=== PATIENT | female | born 1945 | race Caucasian/White ===

== ENCOUNTER 2018-05-26 08:58 | Outpatient (CLI) | payer MEDICARE | END 2018-05-26 08:59 | disposition home or self-care (01) | LOC: BICMAMMO 08:58 | PROVIDERS: ATTEND Specialist | DX: Z12.31 Encounter for screening mammogram for malignant neoplasm of breast (principal); R92.1 Mammographic calcification found on diagnostic imaging of breast | CPT/HCPCS: 77063; 77067 ==

== ENCOUNTER 2019-05-27 08:01 | Outpatient (CLI) | payer MEDICARE ==
--- NOTE | 2019-05-27 08:55 | MMO ---
Bilateral MAMMO Bilat Screen [facility]. CLINICAL HISTORY: Patient is 74 years old and is seen for screening. The patient has no family history of breast cancer. The patient has a history of Skin cancer at age 63. VIEWS: The views performed were: bilateral craniocaudal with tomosynthesis and bilateral mediolateral oblique with tomosynthesis. FILMS COMPARED: The present examination has been compared to prior imaging studies performed at [facility] on 05/20/2015, 05/21/2016, 05/23/2017 and 05/26/2018. MAMMOGRAM FINDINGS: There are scattered fibroglandular densities. There is a new oval mass measuring 9 millimeters with obscured margins seen in the posterior upper-outer region of the left breast. In the right breast, there are no suspicious masses, calcifications or areas of architectural distortion. IMPRESSION: NEW MASS IN THE LEFT BREAST REQUIRES ADDITIONAL EVALUATION. SPOT COMPRESSION IS RECOMMENDED. AN ULTRASOUND EXAM IS RECOMMENDED IF NEEDED. THE RESULTS OF THIS EXAM WERE SENT TO THE PATIENT. ACR BI-RADS Category 0 - Incomplete: Need additional imaging evaluation. [facility] will notify the patient of the need for additional imaging services. MAMMOGRAPHY NOTE: 1. A negative mammogram report should not delay a biopsy if a dominant of clinically suspicious mass is present. 2. Approximately 10% to 15% of breast cancers are not detected by mammography. 3. Adenosis and dense breasts may obscure an underlying neoplasm. Reported by: CHATO POWELL MD Electonically Signed: [id number]
== END 2019-05-27 08:02 | disposition home or self-care (01) ==
LOC: BICMAMMO 08:01
PROVIDERS: ATTEND Specialist
DX: Z12.31 Encounter for screening mammogram for malignant neoplasm of breast (principal); N63.20 Unspecified lump in the left breast, unspecified quadrant; Z85.828 Personal history of other malignant neoplasm of skin
CPT/HCPCS: 77063; 77067

== ENCOUNTER 2019-05-29 08:43 | Outpatient (CLI) | payer MEDICARE ==
--- NOTE | 2019-05-29 12:07 | ULT ---
LEFT BREAST DIAGNOSTIC ULTRASOUND: INDICATION: Followup left breast masses. FINDINGS: Within the left breast 12 o'clock position 2 cm from the nipple, there is a 0.8 x 0.5 cm cyst. An ad ditional simple-appearing cyst is seen in the left breast 1 o'clock position 4 cm from the nipple kait suring 3 x 2.7 mm. IMPRESSION: BIRADS category 2 - benign. POS: OFF
--- NOTE | 2019-06-02 06:46 | MMO ---
Left Breast MAMMO Unilat Diag [facility]. CLINICAL HISTORY: Patient is 74 years old and is seen for additional evaluation requested from prior study. The patient has no family history of breast cancer. The patient has a history of Skin cancer at age 63. VIEWS: The views performed were: left craniocaudal spot compression with tomosynthesis; left mediolateral oblique spot compression with tomosynthesis; and left mediolateral with tomosynthesis. FILMS COMPARED: The present examination has been compared to prior imaging studies performed at [facility] on 05/23/2017, 05/26/2018, 05/27/2019 and 05/29/2019. MAMMOGRAM FINDINGS: There are scattered fibroglandular densities. Finding 1: There is an equal density, oval mass measuring 9 millimeters seen in the middle region of the left breast at 12 o'clock. The mass was shown to be a cyst on ultrasound. Finding 2: There is an oval mass measuring 3 millimeters seen in the middle region of the left breast at 1 o'clock. The mass was shown to be a cyst on ultrasound. There are no suspicious masses, suspicious calcifications, or new areas of architectural distortion. IMPRESSION: FINDING 1: MASS IN THE MIDDLE REGION OF THE LEFT BREAST AT 12 O'CLOCK IS BENIGN. FINDING 2: MASS IN THE MIDDLE REGION OF THE LEFT BREAST AT 1 O'CLOCK IS BENIGN. THE FINDINGS AND RECOMMENDATIONS WERE DISCUSSED WITH THE PATIENT PRIOR TO HER LEAVING THE CENTER. A ROUTINE FOLLOW-UP MAMMOGRAM IN 1 YEAR IS RECOMMENDED. THE RESULTS OF THIS EXAM WERE SENT TO THE PATIENT. ACR BI-RADS Category 2 - Benign finding MAMMOGRAPHY NOTE: 1. A negative mammogram report should not delay a biopsy if a dominant of clinically suspicious mass is present. 2. Approximately 10% to 15% of breast cancers are not detected by mammography. 3. Adenosis and dense breasts may obscure an underlying neoplasm. Reported by: RICHIE FLOOD MD Electonically Signed: [id number]
== END 2019-05-29 08:44 | disposition home or self-care (01) ==
LOC: BICMAMMO 08:43
PROVIDERS: ATTEND Specialist
DX: N63.20 Unspecified lump in the left breast, unspecified quadrant (principal)
CPT/HCPCS: 76642; 77065; G0279

== ENCOUNTER 2020-03-17 09:06 | Outpatient (CLI) | payer MEDICARE ==
--- NOTE | 2020-03-17 11:26 | RAD ---
THORACIC SPINE 3 VIEWS: Date: 03/17/2020 INDICATION: Back pain and scoliosis. FINDINGS: Thoracic vertebra maintain height and alignment. Mild to moderate degenerative spurring is seen. No c ompression deformity. No lytic or blastic process. IMPRESSION: Mild to moderate degenerative changes of the thoracic spine. POS: AGW
--- NOTE | 2020-03-17 11:27 | RAD ---
LUMBAR SPINE 2 VIEWS: AP and lateral views obtained weightbearing. INDICATION: Back pain. Scoliosis. FINDINGS: In the AP projection, there is scoliotic curvature to the right with apex at L3-4 measured at approxi mately 15 degrees. On the lateral view, there is a grade I anterolisthesis at L5-S1. There may be p osterior spondylolysis, although this is not confirmed. There is loss of disk space at L4-5. Moderate degenerative spurring. Facet hypertrophy. IMPRESSION: Moderate degenerative change with mild scoliotic curvature as described above. Grade I anterolisthes is at L5-S1. POS: AGW
== END 2020-03-17 09:07 | disposition home or self-care (01) ==
LOC: BICRAD 09:06
PROVIDERS: ATTEND Specialist
DX: M41.9 Scoliosis, unspecified (principal); M54.5 Low back pain; M47.816 Spondylosis without myelopathy or radiculopathy, lumbar region; M43.17 Spondylolisthesis, lumbosacral region; M47.814 Spondylosis without myelopathy or radiculopathy, thoracic region
CPT/HCPCS: 72072; 72100

== ENCOUNTER 2020-07-20 17:03 | Inpatient (IN) | payer MEDICARE, OTHER ==
[2020-07-20 18:21] LABS: #Eosinphils 0.1 thou/uL (0.0-0.7); #Lymphocytes 1.2 thou/uL (1.20-3.40); #Monocytes 0.5 thou/uL (0.11-0.59); #Neutrophils 2.7 thou/uL (1.40-6.50); %Basophils 0.4 % (0.0-1.0); %Eosinophils 1.3 % (0.0-10.0); %Lymphocytes 27.6 % (21.0-51.0); %Monocytes 11.1 % (0.0-10.0); %Neutrophils 59.6 % (42.0-75.0); Hemoglobin 14.9 g/dL (12.0-16.0); Mean Corpuscular HGB CONC 33.2 g/dL (32.0-36.0); Mean Corpuscular Hemoglobin 32.6 pg (27.0-31.0); Mean Corpuscular Volume 98.1 fL (78.0-98.0); Mean Platelet Volume 7.7 fL (7.4-10.4); Platelet Count 251 thou/uL (130-400); RBC Distribution Width 11.1 % (11.5-14.5); Red Blood Cell (RBC) Count 4.58 mill/uL (4.20-5.40); White Blood Cell (WBC) Count 4.5 thou/uL (4.8-10.8)
[2020-07-20] MEDS ORDERED: Ondansetron PF 4 MG/2 ML Vial ONE (18:23)
[2020-07-20] MEDS ORDERED: Aspirin 325 MG TAB ONE (18:23)
--- NOTE | 2020-07-20 18:30 | RAD ---
CHEST ONE VIEW: 07/20/20 HISTORY: Chest pain, nausea. COMPARISON: 07/05/09. FINDINGS: Heart size is normal. Lungs are clear. No confluent pneumonia, overt edema, or pleural effusion. Evid ence for old granulomatous disease. Postoperative changes of both humeral heads. IMPRESSION: No significant acute intrathoracic disease. Old granulomatous disease. POS: RRE
[2020-07-20 18:40] LABS: ALT (SGPT) 21 U/L (8-55); AST (SGOT) 21 U/L (5-34); Albumin 4.4 g/dL (3.4-4.8); Alkaline Phosphatase 62 U/L (40-110); Anion Gap 15 mmol/L (10-20); BUN (Urea Nitrogen) 12 mg/dL (9.8-20.1); Bilirubin, Total 0.7 mg/dL (0.2-1.2); Calc. Creatinine Clearance 0 mL/min (70-130); Calcium 10.1 mg/dL (7.8-10.44); Carbon Dioxide 24 mmol/L (23-31); Chloride 102 mmol/L (98-107); Estimated GFR-MDRD 67; Globulin 2.9 g/dL (2.4-3.5); Glucose 104 mg/dL (83-110); Lipase 26 U/L (8-78); Magnesium 1.9 mg/dL (1.6-2.6); Potassium 4.2 mmol/L (3.5-5.1); Protein, Total 7.3 g/dL (6.0-8.3); Sodium 137 mmol/L (136-145)
[2020-07-20] MEDS ORDERED: Acetaminophen 500 MG TAB ONE (18:59)
[2020-07-20] MEDS ORDERED: Pantoprazole 40 MG VIAL ONE (19:54)
[2020-07-20] MEDS ORDERED: Ibuprofen 200 MG TAB ONE (21:02)
[2020-07-20 21:55] LABS: Troponin I Less than 0.010 ng/mL (< 0.028)
[2020-07-20] MEDS ORDERED: Ondansetron PF 4 MG/2 ML Vial IVP PRN (22:15)
[2020-07-20] MEDS ORDERED: Acetaminophen 325 MG TAB PO PRN (22:15)
[2020-07-20] MEDS ORDERED: Ondansetron ODT 4 MG TAB SL PRN (22:15)
[2020-07-20 22:58] VITALS: BMI 20.5
[2020-07-21] MEDS ORDERED: Ondansetron PF 4 MG/2 ML Vial IVP PRN (07:35)
[2020-07-21] MEDS ORDERED: Acetaminophen 325 MG TAB PO PRN (07:35)
[2020-07-21] MEDS ORDERED: FLU VACC QS2020-21(65YR UP)/PF 240 MCG/0.7 ML SYRINGE IM ONE (07:45)
[2020-07-21] MEDS: Aspirin Chewable 81 MG TAB PO SCH (07:47)
--- NOTE | 2020-07-21 08:29 | HP ---
CHIEF COMPLAINT: Chest pain with nausea. HISTORY OF PRESENT ILLNESS: The patient is a 75-year-old female, who states that she began to have substernal chest pain actually that had begun 2 to 3 days before coming to the emergency room, but on the day of admission, she began to notice shortness of breath and the discomfort began to go down her left arm. It was associated with a lot of nausea. She did not actually vomit. She has a history of pancreatitis in the past, but has never smoked and does not drink and her gallbladder has been removed such that her risk factors were fairly low. Dr. Matt was contacted to place her in observation for further evaluation due to the other risk factors that include her age and hyperlipidemia. PAST MEDICAL HISTORY: Includes dyslipidemia, hypothyroidism, basal cell carcinoma from her nose, pancreatitis. PAST SURGICAL HISTORY: Includes aforementioned cholecystectomy, carpal tunnel surgery on both hands, bilateral shoulder surgery, and removal of the basal cell carcinoma from her nose. Additional surgeries include hernia repair, tubal ligation. SOCIAL HISTORY: She is . Has never used alcohol, cigarettes, or illicit drugs. ALLERGIES: TO HORSE SERUM. CURRENT MEDICATIONS: On admission include: 1. Aleve 220 mg b.i.d. 2. Vitamin D. 3. Atorvastatin 10 mg at bedtime. 4. Estradiol 0.5 mg daily. 5. Levothyroxine 88 mcg daily. FAMILY HISTORY: Positive for coronary artery disease. Her father of an [place] in his 70s and grandfather of an [place] in his 60s. Negative for diabetes, hypertension, or cancer. REVIEW OF SYSTEMS: Constitutionally, she has had no fever, chills, or malaise. HEENT: Denies drainage or discharge from eyes, ears, nose, or throat. CHEST: Denies shortness of breath or cough. CARDIOVASCULAR: Admits to chest discomfort as reason for admission. Denies palpitations. GI: Admits to nausea, but no vomiting or diarrhea. : Denies blood in urine or stool or dysuria. MUSCULOSKELETAL: Has pain radiating down her left arm on admission that is resolved at this time. Otherwise, no other specific musculoskeletal complaints. SKIN: No new rashes or lesions. NEUROLOGIC: No trouble with mentation. She did have some headaches on admission, but denies photophobia or sonophobia. PHYSICAL EXAMINATION: At the time of admission: VITAL SIGNS: Blood pressure 109/65, O2 saturation 100% on room air, respiratory rate 18, pulse 62, temperature 97.9, she weighs 127 pounds. GENERAL: This is a well-developed, well-nourished, female, alert, oriented, cooperative. HEENT: Normocephalic, atraumatic. Pupils are equal, round, and reactive to light with arcus senilis bilaterally. TMs, nares, and pharynx clear. NECK: Supple. Trachea midline. CHEST: Clear to auscultation. Nontender to palpation. HEART: Regular rate and rhythm without murmur. ABDOMEN: Soft. No tenderness. No organomegaly. : Deferred. EXTREMITIES: Without clubbing, cyanosis, or edema. Normal range of motion demonstrated. Symmetrical muscular tone noted in upper and lower extremities. NEUROLOGIC: Cranial nerves are intact. Mental status is clear. Sensory exam is grossly intact. Unable to test cerebellar function or gait at this time. LABORATORY WORK: On admission shows WBCs 4.5, hemoglobin 14.9, hematocrit 44.9 with platelets of 251. Sodium is 137, potassium 4.2, chloride 102, CO2 of 24, BUN 12, creatinine 0.83 with a GFR 67, glucose 104, calcium 10.9. Liver functions unremarkable. Troponin I is negative x2. BNP at 22.3. Liver functions normal. Lipase 26. TSH 1.72. Covid-19 + ASSESSMENT: 1. Chest pain probably due to severe gastroesophageal reflux. 2. Covid 19 3. Gastroesophageal reflux. 4. Dyslipidemia. 5. Hypothyroidism. The patient is currently euthyroid. PLAN: Appropriate isolation, Hydroxychloroquine, Zithromax, Zinc, monitor coagulopathy measures Will get Cardiolite stress test. Consult Dr. Olivo. Serial re-evaluation. Begin proton pump inhibitor with Protonix and serially re-evaluate her. Job ID: [id number] [facility]
[2020-07-21] MEDS ORDERED: ADENOSINE 60 MG/20 ML VIAL ONE (08:32)
[2020-07-21 09:29] LABS: Troponin I Less than 0.010 ng/mL (< 0.028)
[2020-07-21 12:35] LABS: SARS-CoV-2 MS2 Positive; SARS-CoV-2 N Gene Positive; SARS-CoV-2 S Gene Positive; SARS-CoV-2 by NAA DETECTED (NotDetected); SARS-CoV-2 orf1ab Positive
[2020-07-21] MEDS ORDERED: Hydroxychloroquine Sulfate 200 MG TAB PO SCH (13:00)
[2020-07-21] MEDS ORDERED: Zinc Sulfate 220 MG CAP PO SCH (13:00)
--- NOTE | 2020-07-21 13:04 | NM ---
CARDIAC SPECT: CLINICAL HISTORY: 75-year-old female with dyslipidemia and chest pain. TECHNIQUE: A myocardial perfusion scan was performed using the single isotope one day protocol with technetium-9 9m sestamibi. 9 mCi were injected intravenously for the rest exam followed by 29 mCi for the stress e xam. Pharmacologic stress with Adenosine was monitored and interpreted by Amita Gonzalez NP. FINDINGS: Homogeneous tracer distribution is seen in the myocardial segments on stress and rest images without fixed or reversible defects. GATED SPECT LVEF: 83%. WALL MOTION EXAM: Normal. IMPRESSION: Normal myocardial perfusion scan. POS: AH
[2020-07-21] MEDS: Enoxaparin Sodium 40 MG/0.4 ML SYRINGE SC SCH (20:43)
[2020-07-21] MEDS: Hydroxychloroquine Sulfate 200 MG TAB PO SCH (20:44)
[2020-07-21] MEDS: Atorvastatin Calcium 10 MG TAB PO SCH (20:44)
--- NOTE | 2020-07-21 23:32 | CON ---
DATE OF CONSULTATION: HISTORY OF PRESENT ILLNESS: Naheed Martin is a 75-year-old female who came into the hospital yesterday with complaints of 2-3 days of chest pain. She has some shortness of breath and noticed some discomfort going into her left arm. This pain was continuously for at least 1 day, although her cardiac enzymes were unremarkable. There was not a pleuritic component to the pain. PAST MEDICAL HISTORY: Hypercholesterolemia, hypothyroidism, history of basal cell cancer, pancreatitis. PAST SURGICAL HISTORY: Cholecystectomy, carpal tunnel surgery in both hands, bilateral shoulder surgery, hernia repair, tubal ligation. MEDICATIONS: 1. Aleve 220 mg b.i.d. 2. Atorvastatin 10 daily. 3. Estradiol 0.5 daily. 4. Levothyroxine 88 mcg daily. ALLERGIES: HORSE SERUM. FAMILY HISTORY: Father had myocardial infarctions in his 70s. SOCIAL HISTORY: She does not smoke or drink. PHYSICAL EXAMINATION: VITAL SIGNS: Blood pressure 117/57, pulse of 84. Physical exam is deferred due to being positive COVID. LABORATORY DATA: EKG revealed normal sinus rhythm, possible left atrial enlargement. Adenosine Cardiolite revealed ejection fraction of 83% with normal perfusion. Cardiac enzymes are unremarkable. Sodium 137, potassium 4.2, chloride 102, carbon dioxide 24, BUN 12, creatinine 0.83. TSH is normal. BNP 22.3. COVID is positive. Hemoglobin 14.9, hematocrit 44.9, white count 4500, platelets 251,000. IMPRESSION: 1. Noncardiac chest pain. 2. COVID positive. 3. Hypothyroidism. 4. Hypercholesterolemia. PLAN: No further cardiac evaluation is warranted. I will follow the patient at a distance.. Job ID: [id number] [facility]
[2020-07-22] MEDS: Levothyroxine Sodium 88 MCG TAB PO SCH (05:12)
[2020-07-22 05:46] LABS: Anion Gap 8 mmol/L (10-20); BUN (Urea Nitrogen) 11 mg/dL (9.8-20.1); Calc. Creatinine Clearance 54 mL/min (70-130); Calcium 8.7 mg/dL (7.8-10.44); Carbon Dioxide 27 mmol/L (23-31); Cardiac Risk 3.2 (Less than 4.5); Chloride 104 mmol/L (98-107); Cholesterol 105 mg/dl (< 200 Desired); Estimated GFR-MDRD 71; Glucose 126 mg/dL (83-110); HDL Cholesterol 33 mg/dL (>60 Neg Risk); LDL Cholesterol, Calculated 49 mg/dL; Potassium 3.9 mmol/L (3.5-5.1); Sodium 135 mmol/L (136-145); Triglycerides 116 mg/dL (Less than 150)
[2020-07-22 05:54] LABS: PTT 36.1 sec (22.9-36.1); Prothrombin Time 13.7 sec (12.0-14.7)
[2020-07-22 05:55] LABS: D-Dimer Test 0.44 *mcg/mL (0.27-0.43)
[2020-07-22 06:11] LABS: Bacteria/HPF None Seen HPF (None Seen); RBC/HPF 0-3 HPF (0-3); WBC/HPF 0-3 HPF (0-3)
[2020-07-22] MEDS: Hydroxychloroquine Sulfate 200 MG TAB PO SCH ×2 (08:26→19:36)
[2020-07-22] MEDS: Zinc Sulfate 220 MG CAP PO SCH (08:26)
[2020-07-22] MEDS: Aspirin Chewable 81 MG TAB PO SCH (08:26)
--- NOTE | 2020-07-22 11:01 | RAD ---
PORTABLE CHEST: Date: 07/22/2020 HISTORY: COVID-positive. COMPARISON: 07/20/2020 exam. FINDINGS: Heart size and mediastinum are within normal limits. Nodular densities in the lung bases are felt to be related to nipple shadows. No definite confluent infiltrative process. Postoperative changes of arabella th shoulders are noted. IMPRESSION: No active intrathoracic disease. POS: ASHISH
[2020-07-22 16:46] LABS: Cardiolipin IgA Ab 1.9 APL-U/mL (<14 Negative); Cardiolipin IgG Ab 1.1 GPL-U/mL (<10 Negative); Cardiolipin IgM Ab 7.6 MPL-U/mL (<10 Negative); EliA APS New Method **** NEW METHOD ****
[2020-07-22] MEDS: Enoxaparin Sodium 40 MG/0.4 ML SYRINGE SC SCH (19:36)
[2020-07-22] MEDS: Atorvastatin Calcium 10 MG TAB PO SCH (19:36)
[2020-07-23] MEDS: Levothyroxine Sodium 88 MCG TAB PO SCH (04:50)
[2020-07-23 04:55] LABS: #Eosinphils 0.1 thou/uL (0.0-0.7); #Lymphocytes 1.1 thou/uL (1.20-3.40); #Monocytes 0.4 thou/uL (0.11-0.59); #Neutrophils 3.1 thou/uL (1.40-6.50); %Basophils 0.6 % (0.0-1.0); %Eosinophils 2.4 % (0.0-10.0); %Lymphocytes 22.8 % (21.0-51.0); %Neutrophils 65.2 % (42.0-75.0); Hemoglobin 12.7 g/dL (12.0-16.0); Mean Corpuscular HGB CONC 34.9 g/dL (32.0-36.0); Mean Corpuscular Hemoglobin 33.7 pg (27.0-31.0); Mean Corpuscular Volume 96.7 fL (78.0-98.0); Mean Platelet Volume 7.8 fL (7.4-10.4); Platelet Count 255 thou/uL (130-400); RBC Distribution Width 10.8 % (11.5-14.5); Red Blood Cell (RBC) Count 3.77 mill/uL (4.20-5.40); White Blood Cell (WBC) Count 4.7 thou/uL (4.8-10.8)
[2020-07-23 05:36] LABS: ALT (SGPT) 14 U/L (8-55); AST (SGOT) 15 U/L (5-34); Albumin 3.7 g/dL (3.4-4.8); Alkaline Phosphatase 55 U/L (40-110); Anion Gap 12 mmol/L (10-20); BUN (Urea Nitrogen) 7 mg/dL (9.8-20.1); Bilirubin, Direct 0.4 mg/dL (0.1-0.3); Bilirubin, Total 0.8 mg/dL (0.2-1.2); Calc. Creatinine Clearance 61 mL/min (70-130); Calcium 8.8 mg/dL (7.8-10.44); Carbon Dioxide 24 mmol/L (23-31); Chloride 105 mmol/L (98-107); Estimated GFR-MDRD 80; Glucose 107 mg/dL (83-110); Sodium 137 mmol/L (136-145)
[2020-07-23] MEDS: Hydroxychloroquine Sulfate 200 MG TAB PO SCH (07:41)
[2020-07-23] MEDS: Zinc Sulfate 220 MG CAP PO SCH (07:41)
[2020-07-23] MEDS: Aspirin Chewable 81 MG TAB PO SCH (07:41)
[2020-07-23 08:38] VITALS: BP 121/69; TEMP 98
--- NOTE | 2020-07-26 04:37 | PQF ---
CLINICAL DOCUMENTATION CLARIFICATION FORM: Dear : Dangelo Matt Date / Time: 07/26/20436 Please exercise your independent, professional judgment in responding to the clarification form. Clinical indicators are provided on the bottom of this form for your review Please check appropriate box(es): [ ] Sepsis due to Covid 19 infection [ x ] Localized infection without sepsis [ ] Other diagnosis, please specify: [ ] Unable to determine In addition, please specify: Present on Admission (POA): [ x ] Yes [ ] No [ ] Unable to determine Physician Signature: Date/Time: For continuity of documentation, please document condition throughout progress notes and discharge summary. Thank You. To be completed by CDI/Coding staff for physician review: Present Clinical Indicators - Signs / Symptoms / Labs Results and Location in Medical Record [X] BP 117/57, pulse 84, Resp 20, Temp 97.9 Vital signs 07/21 [X] BP 127/76, pulse 86, Resp 23, Temp 98.0 Vital signs 07/22 [X] WBC 4.5, Plt count 251, Neutrophils 59.6 Laboratory 07/20 [X] WBC 4.7, Plt count 255, Neutrophils 65.2 Laboratory 07/23 [X] Began notice of SOB H&P p1 07/22 Dr Matt [X] Covid 19 H&P p2 07/22 Dr Matt [X] Chest Xray: No Significant acute intrathoracic disease Chest Xray 07/20 Present Risk Factors Results and Location in Medical Record [X] 75 year-old Male H&P p1 07/22 Dr Matt [X] HTN H&P p1 07/22 Dr Matt [X] Hx of Basal cell carinoma H&P p1 07/22 Dr Matt [X] Covid 19 H&P p2 07/22 Dr Matt Present Treatments Results and Location in Medical Record [X] IVF NS 1L MAR 07/23 [X] Isolation H&P p2 07/22 Dr Matt [X] Zithromax H&P p2 07/22 Dr Matt [X] Chest -Xray Imaging DR Ambrose 07/20 CDS/Business Change Manager Signature: Yanet Lugovitaliy Phone #: [phone] Date/Time: 07/26/2020436 This is a permanent part of the Medical Record [facility]
[2020-07-27 13:51] LABS: Protein C Activity 69 % (78-152)
[2020-07-27 13:52] LABS: Factor VIII Test 237.1 % ACTIVE (56-157)
== END 2020-07-23 11:40 | disposition home or self-care (01) | DRG 179 ==
LOC: ERS 17:03 → 2SW 20:08 → OBSVTOIN 07-22 07:10
PROVIDERS: ADMIT Specialist; ATTEND Specialist
PROC: 8E0ZXY6 Isolation (ICD-10-PCS; principal; 2020-07-21)
PROC: 3E02340 Introduction of Influenza Vaccine into Muscle, Percutaneous Approach (ICD-10-PCS; 2020-07-21)
DX: U07.1 COVID-19 (principal); E78.5 Hyperlipidemia, unspecified; E03.9 Hypothyroidism, unspecified; K21.9 Gastro-esophageal reflux disease without esophagitis; E78.00 Pure hypercholesterolemia, unspecified; R07.89 Other chest pain; Z23 Encounter for immunization; Z90.49 Acquired absence of other specified parts of digestive tract; Z85.828 Personal history of other malignant neoplasm of skin; Z88.7 Allergy status to serum and vaccine; Z79.899 Other long term (current) drug therapy; Z79.890 Hormone replacement therapy
CPT/HCPCS: 36415; 71045; 78452; 80048; 80053; 80061; 80076; 81015; 81240; 81241; 83090; 83690; 83735; 83880; 84443; 84484; 85025; 85240; 85300; 85303; 85305; 85307; 85379; 85598; 85610; 85730; 86147; 87635; 90471; 90662; 93005; 93017; 94760; 96372; 96374; 96375; A9500; C9113; G0008; G0378; J0153; J1650; J2405; U0003

== ENCOUNTER 2020-07-28 13:46 | Emergency (ER) | payer MEDICARE, OTHER ==
[2020-07-28] MEDS ORDERED: Metoclopramide HCl 10 MG/2 ML VIAL ONE ×2 (14:01→14:20)
[2020-07-28] MEDS ORDERED: diphenhydrAMINE 50 MG/ML VIAL ONE (14:01)
--- NOTE | 2020-07-28 14:36 | CT ---
CT HEAD WITHOUT CONTRAST: Date: 07/28/2020 INDICATION: Headache. No comparison. FINDINGS: Ventricles have normal size and position. There are mild bilateral symmetric white matter hyperintens ities most consistent with mild chronic ischemic white matter change in this age patient. There is no evidence of mass, infarct, or hemorrhage. Paranasal sinuses and mastoids are clear. IMPRESSION: No evidence of acute process. POS: AH
[2020-07-28 15:15] LABS: #Eosinphils 0.1 thou/uL (0.0-0.7); #Lymphocytes 2.1 thou/uL (1.20-3.40); #Neutrophils 4.9 thou/uL (1.40-6.50); %Basophils 0.3 % (0.0-1.0); %Eosinophils 1.2 % (0.0-10.0); %Lymphocytes 26.3 % (21.0-51.0); %Neutrophils 60.2 % (42.0-75.0); Hemoglobin 13.2 g/dL (12.0-16.0); Mean Corpuscular Hemoglobin 34.1 pg (27.0-31.0); Mean Corpuscular Volume 94.9 fL (78.0-98.0); Mean Platelet Volume 7.9 fL (7.4-10.4); Platelet Count 357 thou/uL (130-400); Red Blood Cell (RBC) Count 3.86 mill/uL (4.20-5.40); White Blood Cell (WBC) Count 8.1 thou/uL (4.8-10.8)
== END 2020-07-28 16:37 | disposition home or self-care (01) ==
LOC: ERS 13:46
DX: U07.1 COVID-19 (principal); E03.9 Hypothyroidism, unspecified; E78.5 Hyperlipidemia, unspecified; Z79.899 Other long term (current) drug therapy
CPT/HCPCS: 36415; 70450; 85025; 96365; 96375; J1200; J2765

== ENCOUNTER 2020-09-23 10:25 | Outpatient (CLI) | payer MEDICARE ==
[2020-09-23] MEDS ORDERED: Magnevist 469MG/ML 20 ML VIAL ONE (13:30)
--- NOTE | 2020-09-23 13:40 | MRI ---
MRI OF THE BRAIN WITHOUT AND WITH CONTRAST: HISTORY: Dementia. The patient is unable to converse for very long since the summer. COMPARISON: CT brain 07/28/2020. TECHNIQUE: Multiplanar, multisequence MR images were obtained of the brain without and with IV contrast. FINDINGS: There are scattered foci of high T2/FLAIR signal in the subcortical and periventricular white matter, likely secondary to small-vessel ischemic disease. No restricted diffusion is seen to suggest an ac neil infarction. No abnormal enhancement is seen on this exam. There is no evidence of hydrocephalus, intracranial hemorrhage, or extraaxial fluid collection. The expected flow voids are present. The corpus callosum, pituitary, and craniocervical junction are unr emarkable. The calvarium and overlying soft tissues are unremarkable. The visualized paranasal sinuses and mast oid air cells are well aerated. IMPRESSION: Fairly extensive small-vessel ischemic disease without acute intracranial abnormality. POS: EAA
== END 2020-09-23 10:26 | disposition home or self-care (01) ==
LOC: BICMRI 10:25
PROVIDERS: ATTEND Specialist
DX: F03.90 Unspecified dementia, unspecified severity, without behavioral disturbance, psychotic disturbance, mood disturbance, and anxiety (principal); I67.82 Cerebral ischemia
CPT/HCPCS: 70553; 82565; A9579

== ENCOUNTER 2021-10-31 09:19 | Outpatient (CLI) | payer MEDICARE | END 2021-10-31 09:20 | disposition home or self-care (01) | LOC: BICRAD 09:19 | PROVIDERS: ATTEND Specialist | DX: M25.572 Pain in left ankle and joints of left foot (principal) ==